=== PATIENT | female | born 1975 | race Two or more races ===

== ENCOUNTER 2018-06-21 18:14 | Emergency (ER) | payer OTHER ==
[~2018-06-21] VITALS: Ht 152.4 cm; Wt 72.6 kg
[2018-06-21] MEDS ORDERED: NKM (18:25)
--- NOTE | 2018-06-21 18:37 | NUR ---
ED Nurse Note:pt. was bit by her sister's dog today she has 3cm wound on right lower leg and teeth open skin stark on her left arm
[2018-06-21] MEDS ORDERED: Norco 5mg/325mg tab ORAL ONE (18:45)
[2018-06-21] MEDS ORDERED: Lidocaine 1% 10mg/ml/Epi 0.005mg/ml 30ml vial INJ ONE (18:45)
--- NOTE | 2018-06-21 18:48 | NUR ---
ED Nurse Note:pain meds given and animal control form filled in and faxed to facility
[2018-06-21 18:55] VITALS: BP 130/80
--- NOTE | 2018-06-21 19:19 | Emergency Room Report ---
History of Present Illness General Chief Complaint: Animal Bite Source: Patient Present Illness HPI 42 YO Female presents to the ED c/O 02/28 in severity pain to open wounds on the right calf and left wrist. pt. reports alleged dog bite by a pitbull that is vaccinated. Pt. reports large wound to the right calf. Pt. reports that bleeding has subsided. Pt not sure when her last tetanus vaccination was. Denies taking blood thinning medications. Denies bony tenderness/pain. Allergies: Coded Allergies: NAPROXEN (Verified Allergy, Unknown, 06/21/18) Patient History Past Medical History: see triage record Past Surgical History: none Pertinent Family History: none Last Menstrual Period: 2016 Now: No : 0 Para: 0 Nursing Documentation-[facility] Past Medical History: No Stated History Review of Systems All Other Systems: negative except mentioned in HPI Physical Exam Vital Signs Date Time Temp Pulse Resp B/P (MAP) Pulse Ox O2 Delivery O2 Flow Rate FiO2 06/21/18 18:20 98.2 114 18 130/80 97 Room Air Sp02 EP Interpretation: reviewed, normal General Appearance: alert, GCS 15, non-toxic, moderate distress Head: normocephalic, atraumatic Eyes: bilateral eye normal inspection, bilateral eye PERRL ENT: hearing grossly normal, normal voice Neck: full range of motion Respiratory: lungs clear, normal breath sounds, speaking full sentences Cardiovascular #1: regular rate, rhythm, normal capillary refill Cardiovascular #2: 2+ radial (R), 2+ radial (L) Musculoskeletal: back normal, gait/station normal, normal range of motion, non- tender Neurologic: alert, oriented x3, responsive, motor strength/tone normal, sensory intact, speech normal, grossly normal Psychiatric: judgement/insight normal Skin: normal color, no rash, warm/dry, well hydrated, other - Two dog bites: Right LLE, and left wrist. no obvious fb's ntoed. LE laceration is approximately 4cm and stellate- this is largely gaping. the left wrist laceration/ bite wound is approximately 2cm but not gaping. Lymphatic: no adenopathy Procedures Laceration/Wound Repair Laceration/Wound Repair : Consent: Verbal Wound Location: lower extremity - Right calf Wound's Depth, Shape: stellate Wound Length (cm): 4 Wound Explored: contaminated - grossly contaminiated= Dog Bite Anesthesia: Lidocaine w/ Epi Volume Anesthetic (ccs): 4 Wound Repaired With: sutures Suture Size/Type: 4:0, other - Ethilon Number of Sutures: 9 Layer Closure?: No Sterile Dressing Applied?: Yes Splint Applied?: No Sling Applied?: No Patient Tolerated: Well Complications: None Medical Decision Making PA Attestation Dr. house is my supervising Physician whom patient management has been discussed with. Diagnostic Impression: Primary Impression: Dog bite Qualified Codes: W54.0XXA - Bitten by dog, initial encounter ER Course 24 YO female to the emergency department complaining of cough, 2 out of 10 in severity right ear pain with sore throat, nasal congestion and rhinorrhea 3 days. Patient denies fevers or chills. Patient reports history of allergies. Patient denies headache, photophobia or neck pain/stiffness. Patient denies recent travel or ill contacts. Patient denies trauma to the ear or discharge from the ear. She denies sputum production and denies history of asthma. Patient reports she does feel as though she does have some wheezing. No other aggravating or relieving factors. rabies on animal is UTD Ddx considered but are not limited to Cellulitis, rabies, fracture, neurovascular compromise of extremity. Vital signs: are WNL, pt. is afebrile H&PE are most consistent with dog bites of multiple sites, wounds on right LE require approximation as they are gaping.----Two dog bites: Right LLE, and left wrist. no obvious fb's ntoed. LE laceration is approximately 4cm and stellate- this is largely gaping. the left wrist laceration/ bite wound is approximately 2cm but not gaping. ORDERS: none required at this time, the diagnosis is clinical ED INTERVENTIONS: -Tetanus vaccination is administered. Right LE Wound is Sutured. bacitracin and sterile dressing is applied to wounds by RN. DISCHARGE: At this time pt. is stable for d/c to home. Will provide printed patient care instructions, and any necessary prescriptions. Care plan and follow up instructions have been discussed with the patient prior to discharge. * Augmentin BID x 10 days. Last Vital Signs Date Time Temp Pulse Resp B/P (MAP) Pulse Ox O2 Delivery O2 Flow Rate FiO2 06/21/18 18:55 98.2 109 18 130/80 97 Room Air Disposition: HOME, SELF-CARE Condition: Stable Scripts Acetaminophen With Codeine (T#3) (TYLENOL #3 TAB*) Y Tab 1 TAB ORAL Q6H PRN for For Pain, #10 TAB Prov: Val Chun 06/21/18 Bacitracin/Polymyxin B Sulfate (BACITRACIN-POLYMYXIN OINTMENT) 28.35 Gm Oint...g. 1 APPLIC TP BID, #22.8 GM Prov: Val Chun 06/21/18 Amoxicillin/Potassium Clav 875-125* (AUGMENTIN 875-125 TABLET*) 1 Each Tablet 1 TAB ORAL TWICE A DAY for 10 Days, #20 TAB Prov: Val Chun 06/21/18 Patient Instructions: Animal Bite Additional Instructions: Take medications as directed. SUTURES TO BE REMOVED IN 10-14 DAYS Follow up with a Primary Care Provider in 3-5 days, even if your symptoms have resolved. --Please review list of primary care clinics, if you do not already have a primary care provider Return sooner to ED if new symptoms occur, or current symptoms become worse. Do not drink alcohol, drive, or operate heavy machinery while taking Tylenol #3 as this may cause drowsiness. - Please note that this Emergency Department Report was dictated using [employer] segment consultant technology software, occasionally this can lead to erroneous entry secondary to interpretation by the dictation equipment. Val Chun Jun 21, 2018 19:19
[2018-06-21] MEDS ORDERED: Augmentin 875mg Tab ORAL ONE (19:45)
[2018-06-21] MEDS ORDERED: ACETAMINOPHEN-1 EAC1 ORAL (20:43)
[2018-06-21] MEDS ORDERED: AUGMENTIN 875-1 EAC1 ORAL (20:43)
[2018-06-21] MEDS ORDERED: BACITRACIN-P28.35 GM TP (20:43)
[2018-06-21] MEDS ORDERED: Tetanus/Diptheria/Pertussis Vaccine 0.5ml Syr IM ONE (20:45)
[2018-06-21] MEDS ORDERED: Bacitracin Oint UD TOPIC ONE (20:45)
[2018-06-21 20:50] VITALS: BP 136/72
--- NOTE | 2018-06-21 20:50 | NUR ---
ER Nurse Note: Pt seen, treated, medically cleared for discharge by ERMD. Discharge instructions and prescriptions given with repeat verbalization by pt. Instructed pt to follow up with primary care physican within one week. Pt a&ox4, VSS, no signs of distress. Wound site cleaned, bandaged, no signs of infection. ID band removed; left with steady gait via own transportation.
== END 2018-06-21 20:50 | disposition home or self-care (01) ==
LOC: EMR 19:00
DX: S81.811A Laceration without foreign body, right lower leg, initial encounter (principal); S61.512A Laceration without foreign body of left wrist, initial encounter; W54.0XXA Bitten by dog, initial encounter; Y92.9 Unspecified place or not applicable; Z23 Encounter for immunization
CPT/HCPCS: 90471; 90715; 99283